=== PATIENT | female | born 1965 | race Caucasian/White ===

== ENCOUNTER 2018-08-25 00:11 | Emergency (ER) | payer MEDICAID ==
[~2018-08-25] VITALS: Ht 162.6 cm; Wt 127.9 kg
[2018-08-25 00:14] VITALS: Ht 162.6 cm; Wt 127.9 kg
[2018-08-25 02:17] VITALS: BP 144/104
== END 2018-08-25 02:22 | disposition home or self-care (01) ==
LOC: ED 00:11
DX: S97.82XA Crushing injury of left foot, initial encounter (principal); W20.8XXA Other cause of strike by thrown, projected or falling object, initial encounter; Y93.89 Activity, other specified; Y92.89 Other specified places as the place of occurrence of the external cause; Y99.8 Other external cause status
CPT/HCPCS: Q0092